=== PATIENT | male | born 1995 | race Hispanic/Latino ===

== ENCOUNTER 2022-05-27 20:53 | Emergency (ER) | payer SELFPAY | END 2022-05-27 23:05 | disposition home or self-care (01) | DRG 114 | LOC: ED 20:53 | PROC: 0WQ2XZZ Repair Face, External Approach (ICD-10-PCS; principal; 2022-05-27) | DX: S01.112A Laceration without foreign body of left eyelid and periocular area, initial encounter (principal); W22.8XXA Striking against or struck by other objects, initial encounter | CPT/HCPCS: G0168 ==